=== PATIENT | male | born 1940 | race Caucasian/White ===

== ENCOUNTER 2018-03-28 14:25 | Inpatient (IN) | payer OTHER ==
[~2018-03-28] VITALS: Ht 182.9 cm; Wt 94.6 kg
--- NOTE | ~2018-03-28 | EKG ---
[place] [address] [facility] [place] [address] ELECTROCARDIOGRAM REPORT Name: FLYNN TORRES Room #: 200-I ADM IN .R.#: [id number] Admission: 03/28/18 Attend Phys: Arpit Leonard MD, Discharge: Date of : 44 Report #: [id number] THIS REPORT FOR: //name// [facility] Test Date: 2018-03-28 Test Time: 15:17:00 Pat Name: FLYNN TORRES Department: Room: 200 I Gender: M Ammonia Nitrate Operator: Ralf RUELAS : 1940 Requested By: Arpit Leonard Order Number: [id number] MD: Adam Cantrell Measurements Intervals [place] Rate: 62 P: 55 AR: 224 QRS: 43 QRSD: 108 T: 35 QT: 400 QTc: 407 Interpretive Statements Sinus rhythm Prolonged AR interval RSR' in V1 or V2, right VCD No previous ECG available for comparison Electronically Signed On 03-28-2018 17:12:55 CDT by Adam Cantrell [email or web address] <ELECTRONICALLY SIGNED> By: Adam Cantrell MD, [facility] 03/28/18 171 16 16 Adam Cantrell MD, [facility] /EPI
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
--- NOTE | ~2018-03-28 | CATHLAB ---
[facility] [place] [address] INVASIVE PROCEDURE REPORT Name: FLYNN TORRES Room #: 200-I DIS IN [facility]#: [id number] Admission: 03/28/18 Attend Phys: Arpit Leonard, Discharge: 03/30/18 Date of : 44 Date of Service: 04/04/18 1625 Report #: [id number] THIS REPORT FOR: //name// APPROVED REPORT Study performed: 03/29/2018 07:15:23 Patient Details Patient Status: In-Patient Room #: The patient is a 78 year-old male Event Personnel Arpit Leonard Compound Machine Operator, Navdeep Hernández RN RN, Adelaida Tipton RTR, Rocco Francois David Monitor, Aundrea Gil RTR Monitor Procedures Performed Left Heart Cath w/or w/o Coronaries [id number] [facility] Renal Bilateral Peripheral Angiography [id number] CVRENALBIL Procedure Narrative The Left Groin^ was infiltrated with 1% Lidocaine subcutaneous anesthesia. A PINNACLE 6FR Sheath #[id number] sheath was inserted into the RFA^. Coronary angiography was performed using coronary diagnostic catheters. The right coronary system was accessed and visualized with a JR4 catheter. The left coronary system was accessed and visualized with a JL4 catheter. The left ventricle was accessed and visualized with a PIGTAIL catheter. Left ventriculogram was performed in 30 degree projection. An aortogram of the abdominal aorta was performed. Closure device was deployed with a 6 Fr MYNXGRIP 6/7F #[id number]. The patient tolerated the procedure well and there were no complications associated with the procedure. There was no hematoma. Intraoperative Conscious Sedation Sedation start time: 8.57 Case end Time: 9.13 Fentanyl 50 mcg Versed 1 mg Fluoro Time: 1.39 minutes Dose: DAP 4167.30 cGycm2 501 mGy Contrast Type and Amount: Omnipaque 125 ml Hemodynamics The aortic pressure is 145/79 mmHg with a mean of 92 mmHg. The left [facility] [address] [place] [address] INVASIVE PROCEDURE REPORT Name: FLYNN TORRES Room #: 200-I [facility] IN ..#: [id number] Admission: 03/28/18 Attend Phys: Arpit Leonard, Discharge: 03/30/18 Date of : 44 Date of Service: 04/04/18 1625 Report #: [id number] ventricular pressure is 129/5 mmHg with a mean of mmHg. The left ventricular end diastolic pressure is 13 mmHg. Conclusion #1 left main with mild disease ostial narrowing of 20-30% giving rise to LAD and circumflex #2 LAD is moderately disease relatively small Distal vessel with diffuse disease proximal mid vessel lesion of 60% #3 nondominant circumflex is large and mildly diseased #4 dominant right coronary with mild disease #5 left renal artery with minimal irregularity single #6 right renal artery with mild disease #7 normal left ventricular size and systolic function of EF 55%. <ELECTRONICALLY SIGNED> By: Arpit Leonard MD, [facility] 04/04/18 1625 1625 1625 Arpit Leonard MD, FAC /INF
[2018-03-28 15:09] VITALS: BP 130/85
[2018-03-28 15:34] LABS: HEMATOCRIT 41.2 % (42.0-52.0); HEMOGLOBIN 13.9 gm/dL (14.0-18.0); MCH 29.9 pg (26.0-34.0); MCHC 33.8 g/dL (28.0-37.0); MCV 88.6 fL (80.0-100.0); RBC 4.66 mil/uL (4.50-6.00); RDW 14.4 % (10.5-14.5); WBC 5.3 thou/uL (4.0-11.0)
[2018-03-28 15:41] LABS: CREATININE 0.9 mg/dL (0.7-1.3); POTASSIUM 3.8 mmol/L (3.5-5.1)
[2018-03-28] MEDS ORDERED: METFORMIN HCL500 MG PO (15:46)
[2018-03-28 15:47] LABS: TOTAL BILIRUBIN 0.3 mg/dL (<0.1-1.0); TOTAL PROTEIN 7.2 g/dL (6.4-8.2)
[2018-03-28] MEDS ORDERED: ASPIR 8181 MG PO (15:47)
[2018-03-28] MEDS ORDERED: ZOCOR20 MG PO (15:47)
[2018-03-28 19:17] VITALS: BP 141/83
[2018-03-29] VITALS (8 sets, daily range): BP systolic 100–141; BP diastolic 66–92
[2018-03-30] VITALS: BP 108/69
[2018-03-30 00:08] VITALS: BP 108/69
[2018-03-30 04:29] VITALS: BP 108/69
[2018-03-30 04:54] VITALS: BP 121/74
[2018-03-30 07:20] VITALS: BP 133/83
[2018-03-30] MEDS ORDERED: METOPROLOL SUCC50 MG PO (08:14)
[2018-03-30 08:33] VITALS: BP 133/83
== END 2018-03-30 10:00 | disposition home or self-care (01) | DRG 274 ==
LOC: 2N 14:25
PROVIDERS: Internal Medicine Cardiovascular Disease
PROC: 02563ZZ Destruction of Right Atrium, Percutaneous Approach (ICD-10-PCS; principal; 2018-03-29)
PROC: B310ZZZ Fluoroscopy of Thoracic Aorta (ICD-10-PCS; principal; 2018-03-29)
PROC: 4A023N7 Measurement of Cardiac Sampling and Pressure, Left Heart, Percutaneous Approach (ICD-10-PCS; principal; 2018-03-29)
PROC: 4A0234Z Measurement of Cardiac Electrical Activity, Percutaneous Approach (ICD-10-PCS; principal; 2018-03-29)
PROC: B4181ZZ Fluoroscopy of Bilateral Renal Arteries using Low Osmolar Contrast (ICD-10-PCS; principal; 2018-03-29)
PROC: 02K83ZZ Map Conduction Mechanism, Percutaneous Approach (ICD-10-PCS; principal; 2018-03-29)
PROC: B2151ZZ Fluoroscopy of Left Heart using Low Osmolar Contrast (ICD-10-PCS; principal; 2018-03-29)
PROC: B2111ZZ Fluoroscopy of Multiple Coronary Arteries using Low Osmolar Contrast (ICD-10-PCS; principal; 2018-03-29)
DX: I47.1 Supraventricular tachycardia (principal); E78.5 Hyperlipidemia, unspecified; I25.10 Atherosclerotic heart disease of native coronary artery without angina pectoris; E11.9 Type 2 diabetes mellitus without complications; I10 Essential (primary) hypertension; Z87.891 Personal history of nicotine dependence; Z82.49 Family history of ischemic heart disease and other diseases of the circulatory system; Z79.82 Long term (current) use of aspirin; Z79.899 Other long term (current) drug therapy
CPT/HCPCS: 10797; 62110; 62900; 70005

== ENCOUNTER → 2019-05-30 | Outpatient (CLI) | payer OTHER ==
[~2019-05-30] MED LIST: ASPIR 8181 MG PO; METFORMIN HCL500 MG PO; METOPROLOL SUCC50 MG PO; ZOCOR20 MG PO
--- NOTE | 2019-05-30 13:58 | 2DMMODE ---
[facility] [address] [place] [address] 2 D/M-MODE ECHOCARDIOGRAM Name: MELISSAFLYNN Room #: REG [facility]#: [id number] Admission: 05/30/19 Attend Phys: Dieudonne Barreto Discharge: Date of : 44 Date of Service: 05/30/19 1358 Report #: [id number] THIS REPORT FOR: //name// APPROVED REPORT Study performed: 05/30/2019 13:19:48 EXAM: Comprehensive 2D, Doppler, and color-flow Echocardiogram Patient Location: Echo lab Status: routine BSA: 2.15 HR: 67 bpm BP: 132/78 mmHg Rhythm: NSR Other Information Study Quality: Adequate Indications Diabetes Hx SVT with ablation 2D Dimensions RVDd: 40.64 mm IVSd: 9.92 (7-11mm) LVOT Diam: 22.90 (18-24mm) LVDd: 42.60 mm PWd: 9.95 (7-11mm) Ascending Ao: 31.80 (22-36mm) LVDs: 27.80 (25-40mm) Aortic Root: 37.01 mm IVC: 18.00 mm Volumes Left Atrial Volume (Systole) Single Plane 4CH: 37.77 mL Single Plane 2CH: 55.19 mL LA ESV Index: 23.00 mL/m2 Aortic Valve AoV Peak Luis.: 1.09 m/s AO Peak Gr.: 4.79 mmHg LVOT Max P.00 mmHg LVOT Max V: 1.00 m/s FRANK Vmax: 3.76 cm2 Mitral Valve E/A Ratio: 0.8 MV Decel. Time: 173.06 ms [facility] [address] [email or web address] [address] 2 D/M-MODE ECHOCARDIOGRAM Name: FLYNN TORRES Room #: [facility]#: [id number] Admission: 05/30/19 Attend Phys: Dieudonne Barreto Discharge: Date of : 44 Date of Service: 05/30/19 1358 Report #: [id number] MV E Max Luis.: 0.65 m/s MV A Luis.: 0.78 m/s MV PHT: 50.19 ms IVRT: 138.41 ms Pulmonary Valve PV Peak Luis.: 1.66 m/s PV Peak Gr.: 11.08 mmHg Pulmonary Vein P Vein S: 0.56 m/s P Vein A: 0.28 m/s P Vein D: 0.47 m/s P Vein A Dur.: 147.6 msec P Vein S/D Ratio: 1.19 Tricuspid Valve TR Peak Luis.: 2.53 m/s RAP Estimate: 5.00 mmHg TR Peak Gr.: 25.57 mmHg PA Pressure: 31.00 mmHg Left Ventricle The left ventricle is normal size. There is normal left ventricular wall thickness. The left ventricular systolic function is normal. The left ventricular ejection fraction is within the normal range. LVEF is 60-65%. Mild diastolic dysfunction is present (impaired relaxation pattern). Right Ventricle The right ventricle is normal size. The right ventricular systolic function is normal. Atria The left atrium size is normal. Right atrium is mildly dilated. Aortic Valve The aortic valve is normal in structure. No aortic regurgitation is present. There is no aortic valvular stenosis. Mitral Valve The mitral valve is normal in structure. Trace to mild mitral regurgitation. No evidence of mitral valve stenosis. Tricuspid Valve The tricuspid valve is normal in structure. Mild to moderate tricuspid regurgitation. PAP is estimated at 31 mmHg. Pulmonic Valve [address] [address] 2 D/M-MODE ECHOCARDIOGRAM Name: FLYNN TORRES Madyson Room #: REG [facility]#: [id number] Admission: 05/30/19 Attend Phys: [facility] Discharge: Date of : 44 Date of Service: 05/30/19 1358 Report #: [id number] The pulmonary valve is normal in structure. Trace pulmonic regurgitation. Great Vessels The aortic root is normal in size. IVC is normal in size and collapses >50% with inspiration. Pericardium There is no pericardial effusion. <Conclusion> The left ventricle is normal size. There is normal left ventricular wall thickness. The left ventricular systolic function is normal. Mild diastolic dysfunction is present (impaired relaxation pattern). The right ventricle is normal size. The left atrium size is normal. Right atrium is mildly dilated. The aortic valve is normal in structure. Trace to mild mitral regurgitation. Mild to moderate tricuspid regurgitation. PAP is estimated at 31 mmHg. <ELECTRONICALLY SIGNED> By: Claudio Guido MD 05/30/19 1358 1358 1358 Claudio Guido MD /INF
== END ==
LOC: CV 09:55
DX: I08.1 Rheumatic disorders of both mitral and tricuspid valves (principal); F17.210 Nicotine dependence, cigarettes, uncomplicated

== ENCOUNTER → 2019-12-10 | Outpatient (CLI) | payer OTHER | LOC: SJCVC 09:22 | DX: I45.10 Unspecified right bundle-branch block (principal); I44.0 Atrioventricular block, first degree; I47.1 Supraventricular tachycardia; I10 Essential (primary) hypertension; E78.5 Hyperlipidemia, unspecified; E11.9 Type 2 diabetes mellitus without complications; Z79.82 Long term (current) use of aspirin; Z79.899 Other long term (current) drug therapy; Z87.891 Personal history of nicotine dependence ==

== ENCOUNTER → 2020-12-09 | Outpatient (CLI) | payer OTHER | LOC: SJCVC 12:40 | PROVIDERS: ATTEND Internal Medicine Cardiovascular Disease | DX: I45.10 Unspecified right bundle-branch block (principal); I44.0 Atrioventricular block, first degree; I47.1 Supraventricular tachycardia; R55 Syncope and collapse; I10 Essential (primary) hypertension; E11.9 Type 2 diabetes mellitus without complications; E78.5 Hyperlipidemia, unspecified; Z96.641 Presence of right artificial hip joint; Z98.890 Other specified postprocedural states; Z79.82 Long term (current) use of aspirin; Z79.84 Long term (current) use of oral hypoglycemic drugs; Z79.899 Other long term (current) drug therapy; Z87.891 Personal history of nicotine dependence; Z82.49 Family history of ischemic heart disease and other diseases of the circulatory system ==

== ENCOUNTER → 2021-12-09 | Outpatient (CLI) | payer OTHER | LOC: SJCVC 12:40 | PROVIDERS: ATTEND Internal Medicine Cardiovascular Disease | DX: I47.1 Supraventricular tachycardia (principal); I10 Essential (primary) hypertension; E78.5 Hyperlipidemia, unspecified; Z87.891 Personal history of nicotine dependence; Z79.82 Long term (current) use of aspirin; Z79.84 Long term (current) use of oral hypoglycemic drugs; Z79.899 Other long term (current) drug therapy; Z82.49 Family history of ischemic heart disease and other diseases of the circulatory system ==